=== PATIENT | female | born 2000 | race Caucasian/White ===

== ENCOUNTER 2024-05-28 23:38 | Emergency (ER) | payer BC ==
[2024-05-29] MEDS: Acetaminophen 500 MG Tab PO ONE (00:20)
[2024-05-29] MEDS: Ibuprofen 600 MG Tab PO ONE (00:20)
[2024-05-29 02:01] VITALS: BP 116/69; PULSE 89
== END 2024-05-29 02:07 | disposition home or self-care (01) ==
LOC: MW.ED 23:38
DX: B34.9 Viral infection, unspecified (principal); Z79.899 Other long term (current) drug therapy; Z88.8 Allergy status to other drugs, medicaments and biological substances
CPT/HCPCS: 87428; 99283; A9270